=== PATIENT | female | born 1960 | race Caucasian/White ===

== ENCOUNTER → 2016-12-02 | Day surgery (SDC) | payer OTHER ==
[~2016-12-02] MED LIST: ADDERALL 30 MG30 M1 PO; AMLODIPINE BESYL5 MG PO; BUPROPION XL300 M1 PO; LOSARTAN-HCTZ1 EAC2 PO; WELLBUTRIN100 MG PO
--- NOTE | ~2016-12-02 | EKG ---
PATIENT: JAMI LIMON UNIT #: [id number] Ventricular Rate: 82 BPM Atrial Rate: 82 BPM P-R Interval: 150 ms QRS Duration: 82 ms Q-T Interval: 394 ms QTC Calculation(Bezet): 460 ms P [place]: 46 degrees Calculated R [place]: 63 degrees Calculated T [place]: 55 degrees Diagnosis Line: Normal sinus rhythm Diagnosis Line: Normal ECG Diagnosis Line: No previous ECGs available Diagnosis Line: Confirmed by THAD EDWARD MD ([id number]) on Diagnosis Line: 12/02/2016 10:27:11 PM INTERPRETING MD: BOSSMAN
--- NOTE | ~2016-12-02 | OR ---
Unit #: [id number] #: [id number] Patient: JAMI LIMON [id number] [address] [place], [place] [address] [id number] O MR#: [id number] NAME: JAMI LIMON ROOM: Date of Procedure: 12/02/2016 Admission Date: 12/02/2016 Surgeon: Cristina Wills M.D. : 1960 Attending Physician: Cristina Wills M.D. Primary Care Physician: Primary Care Physician No OPERATIVE REPORT PREOPERATIVE DIAGNOSES 1. Left knee medial meniscal tear. 2. Left knee medial compartment degenerative arthritis with bone edema in medial proximal tibia and medial distal femur. POSTOPERATIVE DIAGNOSES 1. Left knee medial meniscal tear. 2. Left knee medial compartment degenerative arthritis with bone edema in medial proximal tibia and medial distal femur. PROCEDURES PERFORMED 1. Left knee arthroscopic partial medial meniscectomy (03672). 2. Left medial tibial plateau subchondroplasty (80645). 3. Left medial femoral condyle subchondroplasty (70547). GYN None. ANESTHESIA General. INDICATIONS FOR SURGERY The patient is a 56-year-old female with left knee pain secondary to medial meniscal tear. MRI documents a tear and documents significant edema in the medial tibial plateau, as well as in the medial distal femoral condyle. Standing x-rays do not show significant joint space loss in the medial compartment. The patient has had symptoms for four months and her pain is not responded to physical therapy, anti-inflammatory medication, or corticosteroid injection. She is therefore to undergo left knee arthroscopy to address the medial meniscal tear as well as subchondroplasty to address the increased signal in both sides of her medial compartment. DESCRIPTION OF PROCEDURE The patient was taken to the operating room and placed in supine position and general anesthetic was induced. The left leg was identified as the correct operative extremity during the time-out procedure. A pneumatic tourniquet was applied to the left proximal thigh. The left leg was placed in an arthroscopic leg cristobal and the left leg was prepped and draped in usual sterile fashion. The end of the operating table was bent to 90 degrees. The leg was allowed to hang free. The leg was exsanguinated and thigh tourniquet inflated to 300 mmHg. Unit #: [id number] #: [id number] Patient: JAMI LIMON The 4 mm diameter 30-degree arthroscope was placed in a standard anterolateral portal and an anteromedial portal was established under direct vision. Examination of the patellofemoral joint demonstrated grade 1 and 2 chondromalacia changes. The medial and lateral gutters were clear of loose bodies. The medial portal was established using an outside-in technique. There was a small vertical tear in the posterior horn of the medial meniscus. This was debrided with biters and the shaver. Grade 3 chondromalacia changes were noted in the weightbearing surface of the medial femoral condyle and this was gently debrided with the shaver. The tibial plateau showed grade 1 and grade 2 chondromalacia changes. The intercondylar notch was examined and the ACL and PCL appeared normal. Hypertrophic anterior fat pad was excised with the full-radius shaver. The knee was placed in a acoxrg-ys-xkud position and the lateral compartment was examined. The lateral compartment was completely normal with normal articular cartilage and normal lateral meniscus. All arthroscopic instruments were removed from the knee and the knee was injected with 20 mL of 0.5% plain Marcaine. The leg was removed from the arthroscopic leg cristobal and under C-arm fluoroscopic control, the Queenie subchondroplasty cannulas with trocars were drilled into the medial tibial plateau in the region of the increased signal seen on MRI as well as into the anterior medial distal femur again in the region of the increased signal on MRI. Meticulous care was taken to ensure that the cannulas were in the proper location based on AP and lateral C-arm fluoroscopic views. Following documentation that the cannulas were in proper location, 2 mL of AccuFill Queenie liquid bone was injected into the medial distal femur and 3 mL of AccuFill was injected into the medial tibial plateau. 8 minutes were allowed to elapse prior to removal of the cannulas. The arthroscopic incisions were then closed with 3-0 nylon simple sutures. Xeroform gauze, dressing, sponges, Webril, Garry wrap were applied. The patient was then awakened in the operating room and transported to the recovery room in stable condition. ESTIMATED BLOOD LOSS Minimal. COMPLICATIONS None. SPECIMENS None. TOURNIQUET TIME 20 minutes. Dictated byBri Becerril/modl TD: 12/02/2016 22:53 JOB #: [id number] Unit #: [id number] #: [id number] Patient: JAMI LIMON OPERATIVE REPORT Page 1 of 1 X Refugio Wills MD PROCEDURE OPERATIVE NOTE
--- NOTE | ~2016-12-02 | CR169 ---
[facility] A Service of [facility] & [facility] RADIOLOGY TEXT RESULTS PATIENT: JAMI LIMON LOCATION: [facility] : 56 UNIT #: [id number] AGE: [address]: Refugio Wills MD SEX: F ORDER DR: [id number] [place], [place] [address] [id number] O MR#: [id number] Acc #: [id number] NAME: JAMI LIMON : 1960 SEX: F STUDY DATE/TIME: 12/02/2016 14:20 UNIT: [facility] ROOM: STUDY DESCRIPTION: CR Knee 2 Views Lt Attending Physician: Cristina Wills M.D. Ordering Physician: Cristina Wills M.D. Primary Care Physician: Primary Care Physician No MEDICAL IMAGING REPORT This report is preliminary unless electronic signature is present EXAM Intraoperative spot views left knee HISTORY Arthroscopy FINDINGS 2 spot views of the left knee were obtained during a procedure performed by Dr. Wills. Dictated by... Abdelrahman Gonsalez M.D. THIS IS AN ELECTRONICALLY VERIFIED REPORT Abdelrahman Gonsalez M.D. at 12/03/2016 9:38 AM ANYI/mary TD: 12/02/2016 20:51 JOB #: [id number] MEDICAL IMAGING REPORT Page 1 of 1 COPY
--- NOTE | ~2016-12-02 | HP ---
Unit #: [id number] #: [id number] Patient: JAMI LIMON [id number] [address] [place], [place] [address] [id number] O MR#: [id number] NAME: JAMI LIMON ROOM: Age: Sex: F Admission Date: 12/02/2016 : 1960 Attending Physician: Cristina Wills M.D. Primary Care Physician: Primary Care Physician No HISTORY AND PHYSICAL CHIEF COMPLAINT Left knee pain. HISTORY OF PRESENT ILLNESS The patient is a 56-year-old female who has an almost five month history of left knee pain which began while squatting and stooping paining her house. She has pain in the medial joint line. She has failed to respond to conservative care to include ibuprofen and physical therapy as well as cortical steroid injections. She had an MRI which demonstrates a medial meniscal tear as well as increased signal in the medial tibial plateau and medial distal femur weightbearing surfaces. She is therefore admitted for a left ankle arthroscopic partial medial meniscectomy and subchondroplasty of the medial tibial plateau and distal medial femur. PAST MEDICAL HISTORY Past medical history is remarkable for hypertension and depression. HOME MEDICATIONS Losartan, Norvasc, Wellbutrin. PAST SURGICAL HISTORY Left thumb carpometacarpal joint arthroplasty. ALLERGIES Penicillin. SOCIAL HISTORY The patient is a smoker. She is a social drinker. She is . FAMILY HISTORY Negative. REVIEW OF SYSTEMS Unremarkable. REVIEW OF SYSTEMS Unremarkable. PHYSICAL EXAMINATION GENERAL: In general this is a well-developed, well-nourished, middle-aged female in no acute distress. Unit #: [id number] #: [id number] Patient: JAMI LIMON HEENT: Pharynx is clear. NECK: Neck is supple, without masses. HEART: Exam reveals a regular sinus rhythm without murmurs or gallops. LUNGS: The lungs are clear to auscultation. ABDOMEN: The abdomen is soft and nontender, without masses or organomegaly. EXTREMITIES: Evaluation of the left knee shows an effusion. She has range of motion of 0 to 135 degrees. She is point tender in the medial joint line. Medial and lateral collateral ligaments are stable. Kendra test is negative. Pivot-shift test is negative. Posterior tibial sag is negative. There is no warmth or erythema. DIAGNOSTIC STUDIES IMAGING: Standing x-rays of the left knee are normal. MRI documents a medial meniscal tear with increased signal in the medial distal tibial plateau and medial femoral condyle weightbearing surface. IMPRESSION/ADMITTING DIAGNOSES 1. Symptomatic left knee medial meniscal tear. 2. Symptomatic early left knee medial compartment arthritis. PLAN The patient is admitted for left knee arthroscopic partial medial meniscectomy and subchondroplasty of the medial compartment involving both the medial tibia and medial femoral condyle. This procedure was described along with risks of bleeding, infection, nerve damage, need for further surgery in the future, prolonged recovery time, deep venous thrombosis, pulmonary embolism, anesthetic complications, need for possible further surgery in the future to include joint replacement. She understands the above risks and agrees to proceed. Dictated by Bri Arellano/yaa TD: 12/01/2016 21:05 JOB #: [id number] HISTORY AND PHYSICAL Page 1 of 1 X Refugio Wills MD X HISTORY AND PHYSICAL
[2016-12-02 10:33] LABS: BUN/CREATININE RATIO 25.71; CALCIUM SERUM 9.2 mg/dL (8.4-10.2); CREATININE SERUM 0.7 mg/dL (0.6-1.4); GLOM FILT RATE Estimated 95.5 mL/min (>60); POTASSIUM 4.3 mmol/L (3.5-5.1)
== END | disposition home or self-care (01) ==
LOC: CSUR 09:17
PROVIDERS: Orthopaedic Surgery
DX: S83.242A Other tear of medial meniscus, current injury, left knee, initial encounter (principal); M17.12 Unilateral primary osteoarthritis, left knee; K21.9 Gastro-esophageal reflux disease without esophagitis; I10 Essential (primary) hypertension; F17.210 Nicotine dependence, cigarettes, uncomplicated; F90.9 Attention-deficit hyperactivity disorder, unspecified type; F32.9 Major depressive disorder, single episode, unspecified; Z79.891 Long term (current) use of opiate analgesic; Z88.0 Allergy status to penicillin; Z79.899 Other long term (current) drug therapy
CPT/HCPCS: 73560; 76001; 80048; 93005; C1713; J1170; J2250; J2405; J3010; J3370